=== PATIENT | female | born 1980 | race African-American/Black ===

== ENCOUNTER → 2016-07-15 | Day surgery (SDC) | payer OTHER ==
[~2016-07-15] MED LIST: AMOXICILLIN PO; FLEXERIL PO; HYDROCODON-ACE1 EAC5 PO; LORTAB 5/500 TA1 TA1; LORTAB 5/500 TA1 TA1 PO; NAPROXEN PO; NO MEDICATIONS; VICODIN 5/1 TAB 5/50 PO
--- NOTE | ~2016-07-15 | OR ---
Unit #: [id number] #: [id number] Patient: BONNY STARK [id number] [address] [place], [place] [address] [id number] MR#: [id number] NAME: BONNY STARK ROOM: Date of Procedure: 07/15/2016 Admission Date: 07/15/2016 Surgeon: Oscar Dixon Jr., M.D. : 1980 Attending Physician: Oscar Dixon Jr., M.D. Primary Care Physician: [facility] OPERATIVE REPORT INDICATION FOR PROCEDURE The patient is a 36-year-old morbidly obese black female, recently presented to the office complaining of some periumbilical pain. It was noted to have a chronic incarcerated umbilical hernia. It was felt this should be reduced and repaired under general anesthesia. She is brought in this time at her request for this procedure. PREOPERATIVE DIAGNOSIS Chronic incarcerated umbilical hernia. POSTOPERATIVE DIAGNOSIS Chronic incarcerated umbilical hernia, noting approximately 2 cm defect with large amount of omental fat incarcerated within it. ANESTHESIA General with endotracheal intubation and 0.5% Marcaine with epinephrine locally. PROCEDURE PERFORMED Reduction and repair of incarcerated umbilical hernia. DESCRIPTION OF PROCEDURE The patient was positioned in supine position. After being anesthetized and intubated, she was prepped and draped in routine fashion for open umbilical hernia reduction with repair. A small curvilinear incision was made above the umbilicus into the sides of the umbilicus, the right and the left, carried down through subcutaneous tissue down to the area of the hernia. There was a large amount of tissue incarcerated within the hernia. This was freed up the posterior portion of the dermis of the umbilicus without making any incisions in the umbilicus and after freeing the hernia circumferentially, it was reduced back into the preperitoneal space. No omentum was removed. Using a finger tip, space was created around posterior to the fascia in the muscle and the preperitoneal space, and a medium Ventralex mesh was then placed with good positioning and sutured in place with the straps being sutured with 0 Ethibond sutures. The straps were excised and the fascial defect was closed with interrupted 0 Ethibond sutures using modified Lowell-Payne type stitches. The wound was irrigated with antibiotic solution. Posterior dermis of the umbilicus was tacked to the fascia with 3-0 Vicryl suture. The subcutaneous tissue approximated with interrupted 3-0 Vicryl sutures. Skin edges approximated with stainless-steel skin clips and skin stapling device. Sterile dressings were applied externally. Estimated blood loss minimal, less Unit #: [id number] #: [id number] Patient: BONNY STARK L than 10 mL. The patient received less than 1000 mL crystalloid solution during the procedure. Sponges and instruments counts were correct x3. No drains used. No complications. The patient was taken to the recovery room with stable vital signs in satisfactory condition. Dictated by... Oscar Dixon Jr., MLance BARTHOLOMEW/leatha TD: 07/15/2016 22:07 JOB #: [id number] OPERATIVE REPORT X Oscar Dixon MD X PROCEDURE OPERATIVE NOTE
== END | disposition home or self-care (01) ==
LOC: CSUR 05:53
DX: K42.0 Umbilical hernia with obstruction, without gangrene (principal); E66.9 Obesity, unspecified; Z68.42 Body mass index [BMI] 45.0-49.9, adult; K86.3 Pseudocyst of pancreas
CPT/HCPCS: 84703; J0330; J0690; J1100; J1170; J1885; J2250; J2405; J2710; J3010

== ENCOUNTER 2016-07-17 22:00 | Observation (INO) | payer OTHER ==
--- NOTE | ~2016-07-17 | BMI ---
[facility] Nutrition Therapy DATE: 07/18/16 Patient: BONNY STARK Physician: RAQUEL Address: [address] [place] [address] Room/Bed: [address] [place] [address], Zip: [place] [address] Admit Date: 07/18/16 Date of : [birth year] Height: 5 7 Weight: 299 136 HIGH BMI NOTE: DX: 36 Y.O. FEMALE ADMITTED FOR POST/OP PAIN ANTHROPOMETRICS: 5'7", WT: 300# (136 KG), BMI: 47.0 DIET: LOW FIBER INTERVENTION: 1. LOW FIBER DIET RECOMMENDATIONS: 1. RECOMMEND TO ADD CC/HH TO CURRENT DIET ORDER ABOVE TO PROMOTE GRADUAL WEIGHT LOSS TOWARDS HEALTHY BMI (19.0-25.0) OR +/-10%IBW RD WILL F/U PER PROTOCOL Respectfully, ANIVAL GIMENEZ MS, RD, LD Food and Nutritional Services [facility] cc: client file
--- NOTE | ~2016-07-17 | CT2 ---
[facility] A Service of [facility] RADIOLOGY TEXT RESULTS PATIENT: BONNY STARK LOCATION: C2A 229-01 : [birth year] UNIT #: [id number] AGE: [address]: Oscar Dixon MD SEX: F ORDER DR: [id number] [facility] [address] [facility]. [place], [place] [address] [id number] MR#: [id number] Acc #: [id number] NAME: BONNY STARK. : 1980 SEX: F STUDY DATE/TIME: 07/18/2016 0:04 UNIT: C2A ROOM: 229 STUDY DESCRIPTION: CT Abd and Pelv W Cont Attending Physician: Oscar Dixon Jr., M.D. Ordering Physician: Desiree Caputo M.D. [facility] MED[facility] IMAGING REPORT This report is preliminary unless electronic signature is present EXAM CT abdomen and pelvis with IV contrast COMPARISON 07/30/2010. INDICATION 36-year-old female with diffuse abdominal pain, emesis and constipation for 2 days post hernia surgery. FINDINGS Axial CT imaging of the abdomen and pelvis was performed after administration of 100 mL of Isovue-370 intravenously. Coronal and sagittal reformats were subsequently constructed. This CT exam was performed with one or more of the following radiation dose reduction techniques: automatic exposure control, adjustment of mA and/or kV according to patient size, and iterative reconstruction. There is subcutaneous fat stranding and minimal fluid in the region of the umbilicus which appears to communicate with a gas- and fluid-containing structure just deep to the abdominal wall in the midline. The gas and fluid structure in the peritoneum measures up to 16 cm transverse by approximately 1.8 cm AP. This may represent an expected postoperative fluid collection. There is a small amount free fluid the pelvis, possibly an expected postsurgical finding. No acute fractures or suspicious osseous lesions. No acute findings in the imaged lower chest. There has been prior cholecystectomy. There is mild prominence of the intrahepatic biliary tree which is likely not significantly changed from CT of 2010 but not well-evaluated due to lack of IV contrast at that time with normal caliber of the common bile duct. Pancreas and spleen are within normal limits. Adrenal glands are normal. Kidneys are within normal limits. No evidence of hydronephrosis or hydroureter. Urinary bladder is collapsed. The uterus is grossly unremarkable. Somewhat crenulated appearing STS. [facility] A Service of [facility] RADIOLOGY TEXT RESULTS PATIENT: BONNY STARK LOCATION: A 229-01 : [birth year] UNIT #: [id number] AGE: [address]: Oscar Dixon MD SEX: F ORDER DR: rim-enhancing low-density lesion in the left adnexal region measuring up to 1 cm is most consistent with a corpus luteum cyst. The appendix is normal. There is diffuse distension of the colon with air-fluid levels, with the most dilated colonic loops measuring up to 5.2 cm. The colon tapers distally to a normal caliber. There is no evidence of obstructing lesion. Stool is seen within the inferior left colon. No free air in the abdomen or pelvis. Abdominal aorta is normal in course and caliber, with patency of its main branches. No evidence of venous thrombosis. IMPRESSION 1. Focal fat stranding and subcutaneous gas, possibly with a trace undrainable fluid collection seen at the level of the umbilicus with overlying skin mila, likely an expected postoperative finding. Apparently communicating with this structure is a fluid- and gas-containing structure immediately deep to the umbilicus within the peritoneum measuring up to 1.8 cm x approximately 6 cm x approximately 4.9 cm. This may also be an expected postoperative fluid collection. There is no definite rim enhancement to suggest abscess. Correlation to exclude signs of infection recommended. 2. Trace amount of simple-appearing fluid within the pelvis, possibly physiologic or an expected postoperative finding. 3. Diffuse gaseous distension of the colon, which also demonstrates air-fluid levels. There appears to be liquid material throughout the colon with some stool seen in the distal left colon. There is no evidence of transition point and there is no pathologic dilatation of the colon. Findings are most consistent with postoperative ileus. No evidence of mechanical small bowel obstruction. 4. Prior cholecystectomy. 5. 1.0 cm lesion in the left adnexal region most likely representing a corpus luteum cyst. Dictated by... Young Cho M.D. THIS IS AN ELECTRONICALLY VERIFIED REPORT Young Cho M.D. at 07/22/2016 12:42 PM SHAR/geneva TD: 07/18/2016 08:40 JOB #: [id number] MEDICAL IMAGING REPORT COPY
--- NOTE | ~2016-07-17 | DS ---
Unit #: [id number] #: [id number] Patient: BONNY STARK [id number] [address] [place], [place] [address] [id number] MR#: [id number] NAME: BONNY STARK ROOM: 229 Age: 36 Sex: F Admission Date: 07/18/2016 : 1980 Discharge Date: 07/19/2016 Attending Physician: Oscar Dixon Jr., M.D. Primary Care Physician: [facility] DISCHARGE SUMMARY DISCHARGE DIAGNOSIS Postoperative ileus, status post umbilical hernia repair. OPERATIVE PROCEDURES None. DISCHARGE MEDICATIONS Home medications. HISTORY OF PRESENT ILLNESS/HOSPITAL COURSE The patient is an 36-year-old obese black female with umbilical hernia repair to open per Dr. Dixon. She has developed a postoperative ileus. There was some fluid collection around the hernia area, but no evidence of any significant intraperitoneal area or problems except for some dilated colon and gas. This was presumed due to some of the pain medication and immobilization. The patient's diet was gradually advanced. She was mobilized more and her pain medicine was curtained. She seemed to get better. She had response to Dulcolax suppositories with bowel movements. Presently at this time she is tolerating a regular diet. She is afebrile. White count is normal. DISCHARGE DISPOSITION She is ready to be discharged to come back to see us in the office for follow-up evaluation in three to four days. Dictated by... Hansa Kwan/josue TD: 07/21/2016 11:07 JOB #: [id number] DISCHARGE SUMMARY X García Bernal MD X DISCHARGE SUMMARY
[~2016-07-17 22:00] MED LIST changes: -HYDROCODON-ACE1 EAC5 PO
[2016-07-17 22:44] LABS: BASOPHIL% 0.3 % (0-2.5); EOSINOPHIL% 0.3 % (0.0-7.0); HEMATOCRIT 37.7 % (35.0-45.0); HEMOGLOBIN 12.3 gm/dL (12.0-16.0); LYMPHOCYTE# 0.9 X10e3 (1.0-3.5); LYMPHOCYTE% 9.9 % (17.0-45.0); MEAN CELL VOLUME 82.2 FL (83-96); MEAN CORPUSCULAR HEMOGLOBIN 26.8 PG (28-34); MEAN CORPUSCULAR HGB CONC 32.6 g/dL (30-36); MONOCYTE# 0.6 X10e3 (0-1.0); MONOCYTE% 7.3 % (3.0-12.0); NEUTROPHIL# 7.1 X10e3 (1.5-7.1); NEUTROPHIL% 82.2 % (40-75); PLATELET COUNT 289 X10e3 (140-420); RED BLOOD COUNT 4.58 X10e (3.90-5.30); RED CELL DISTRIBUTION WIDTH 15.8 % (11.0-15.5); WHITE BLOOD COUNT 8.7 X10e3 (4.0-10.5)
[2016-07-17 22:48] LABS: DIFF IND NO
[2016-07-17 23:04] LABS: ALBUMIN SERUM 3.6 g/dL (3.5-5.0); ALKALINE PHOSPHATASE 46 U/L (32-92); ALT (SGPT) 59 U/L (10-40); AST (SGOT) 39 U/L (10-42); BILIRUBIN, DIRECT 0.1 mg/dL (0.0-0.2); BILIRUBIN,INDIRECT 0.5 mg/dL (0.0-0.9); BILIRUBIN,TOTAL 0.6 mg/dL (0.2-2.0); BLOOD UREA NITROGEN 7 mg/dL (9-23); CALCIUM SERUM 8.9 mg/dL (8.4-10.2); CARBON DIOXIDE 25 mmol/L (22-31); CHLORIDE 100 mmol/L (100-111); CREATININE SERUM 0.7 mg/dL (0.6-1.4); GLOM FILT RATE Estimated ABOVE60 mL/min (>60); GLUCOSE FASTING 81 mg/dL (70-110); POTASSIUM 3.5 mmol/L (3.5-5.1); PROTEIN TOTAL SERUM 7.9 g/dL (6.0-8.3); SODIUM 135 mmol/L (135-145)
[2016-07-17 23:56] LABS: URINE SOURCE CLEAN CATCH
[2016-07-18] LABS: URINE APPEARANCE CLEAR; URINE BILIRUBIN NEG (NEG); URINE BLOOD NEG (NEG); URINE COLOR DK YELLOW; URINE GLUCOSE NEG (NEG); URINE KETONE 2+ (NEG); URINE LEUKOCYTE ESTERASE TRACE (NEG); URINE NITRATE NEG (NEG); URINE PROTEIN NEG (NEG); URINE SPECIFIC GRAVITY 1.021 (1.003-1.035)
[2016-07-18 00:01] LABS: U HYALINE CASTS AUWI 0-2 /[LPF]; URBCS1 AUWI 0-2 /[HPF] (0-2); URINE BACTERIA AUWI NEG (NEGATIVE); URINE SQUAMOUS EPITHELIAL CELL OCC /[HPF]
[2016-07-18 00:03] LABS: CULTURE INDICATED? NO
[2016-07-18] MEDS ORDERED: HYDROCODON-ACE1 EAC5 PO (04:39)
== END 2016-07-19 10:59 | disposition home or self-care (01) ==
LOC: CED 22:00 → CEDOF 07-18 02:05 → C2A 07-18 03:36
PROVIDERS: Emergency Medicine
DX: K91.89 Other postprocedural complications and disorders of digestive system (principal); R14.3 Flatulence; K63.89 Other specified diseases of intestine; Z98.890 Other specified postprocedural states; E66.9 Obesity, unspecified; N85.9 Noninflammatory disorder of uterus, unspecified; Z81.1 Family history of alcohol abuse and dependence; Z82.5 Family history of asthma and other chronic lower respiratory diseases
CPT/HCPCS: 74177; 80048; 80076; 81003; 84703; 85025; 96372; 96374; 96375; 96376; 99285; G0378; J1170; J2270; Q9967

== ENCOUNTER 2016-08-27 05:48 | Emergency (ER) | payer OTHER ==
--- NOTE | ~2016-08-27 | CT71 ---
[facility] A Service [facility] RADIOLOGY TEXT RESULTS PATIENT: BONNY STARK LOCATION: [facility] : [birth year] UNIT #: [id number] AGE: [address]: Hammad Mendes MD SEX: F ORDER DR: [id number] [place] [id number] [facility]. [place], [place] [address] [id number] MR#: [id number] Acc #: [id number] NAME: BONNY STARK. : 1980 SEX: F STUDY DATE/TIME: 08/27/2016 6:02 UNIT: LORNA ROOM: STUDY DESCRIPTION: CT Head Wo Contrast Attending Physician: Hammad Mendes Ordering Physician: Ed Doctor [id number] [facility] Primary Care Physician: [facility] MEDICAL IMAGING REPORT This report is preliminary unless electronic signature is present EXAM CT head without contrast. HISTORY Diffuse headache for five days. COMPARISON None. This CT exam was performed with one or more of the following radiation dose reduction techniques: automatic exposure control, adjustment of mA and/or kV according to patient size, and iterative reconstruction. FINDINGS Unenhanced images were obtained through the brain. The ventricles and subarachnoid spaces are normal. There are no masses or extraaxial fluid collections. The sella turcica region appears to be mostly devoid of pituitary tissue and CSF density. IMPRESSION There is no evidence of acute abnormality. The patient may have an empty sella in that the sella turcica appears to be filled primarily with CSF density material. There may be some minimal pituitary tissue visible along the inferior margin. Unless the patient has any evidence of pituitary insufficiency, this is probably a normal variant. Dictated by... Yvon Packer M.D. THIS IS AN ELECTRONICALLY VERIFIED REPORT [facility] A Service of [facility] RADIOLOGY TEXT RESULTS PATIENT: BONNY STARK LOCATION: [facility] : [birth year] UNIT #: [id number] AGE: [address]: Hammad Mendes MD SEX: F ORDER DR: Yvon Packer M.D. at 08/27/2016 10:07 AM ALMA/bismark TD: 08/27/2016 10:02 JOB #: [id number] MEDICAL IMAGING REPORT Page 1 of 1 COPY
[~2016-08-27 05:48] MED LIST changes: +HYDROCODON-ACE1 EAC5 PO
== END 2016-08-27 06:49 | disposition home or self-care (01) ==
LOC: CED 05:48
DX: R51 Headache (principal); Z90.49 Acquired absence of other specified parts of digestive tract
CPT/HCPCS: 70450; 96361; 96374; 96375; 99284; J1885; J2765